=== PATIENT | female | born 1985 | race Caucasian/White ===

== ENCOUNTER 2019-06-08 16:41 | Emergency (ER) | payer MEDICARE, MEDICAID ==
[2019-06-08] MEDS ORDERED: Ketorolac Tromethamine 60 MG/2 ML VIAL ONE (18:08)
--- NOTE | 2019-06-08 18:50 | RAD ---
LEFT FOREARM TWO VIEWS: 06/08/19 No fracture was seen. The radius and ulna appear intact. No joint effusion was seen at the elbow. IMPRESSION: No acute findings. POS: HOME
--- NOTE | 2019-06-08 18:51 | RAD ---
LEFT WRIST THREE VIEWS: 06/08/19 No fracture was seen. The carpal bones appear normal. The distal radius and ulna appear normal. IMPRESSION: No significant findings. POS: HOME
== END 2019-06-08 18:17 | disposition home or self-care (01) ==
LOC: BURERS 16:41
DX: M77.9 Enthesopathy, unspecified (principal); F17.210 Nicotine dependence, cigarettes, uncomplicated; Z79.899 Other long term (current) drug therapy
CPT/HCPCS: 73090; 73110; J1885; 96372

== ENCOUNTER 2023-07-27 18:12 | Emergency (ER) | payer BC, OTHER, SELFPAY ==
[2023-07-27] MEDS ORDERED: Acyclovir 400 mg Tablet ONE (18:29)
== END 2023-07-27 18:44 | disposition home or self-care (01) ==
LOC: BURERS 18:12
DX: B02.9 Zoster without complications (principal); F17.210 Nicotine dependence, cigarettes, uncomplicated
CPT/HCPCS: 99282

== ENCOUNTER 2023-07-29 01:31 | Emergency (ER) | payer SELFPAY ==
[2023-07-29] MEDS ORDERED: Morphine 2 MG/ML VIAL ONE (01:50)
[2023-07-29] MEDS ORDERED: Morphine 4 MG/ML VIAL ONE (01:50)
== END 2023-07-29 01:56 | disposition home or self-care (01) ==
LOC: BURERS 01:31
DX: B02.9 Zoster without complications (principal); F17.210 Nicotine dependence, cigarettes, uncomplicated
CPT/HCPCS: 96372; 99283; J2270; J2272